=== PATIENT | male | born 1975 | race Caucasian/White ===

== ENCOUNTER 2019-12-05 22:56 | Inpatient (IN) | payer SELFPAY ==
[~2019-12-05] VITALS: Ht 162.6 cm; Wt 99.8 kg
[2019-12-05 23:05] VITALS: Ht 162.6 cm; Wt 99.8 kg
[2019-12-05 23:32] LABS: BASOPHIL % 0.3 % (0-2); PLATELET COUNT 179 x10^3mcL (130-400); RED CELL DISTRIBUTION WIDTH 14.5 % (11.5-14.5)
[2019-12-05 23:39] LABS: CALCIUM 7.5 mg/dL (8.5-10.1); CARBON DIOXIDE 23.2 mmol/L (21-32); CHLORIDE SERUM 104 mmol/L (98-107); GFR1 > 60 mL/min; GLUCOSE SERUM 142 mg/dL (74-106); POTASSIUM SERUM 4.3 mmol/L (3.5-5.1); SODIUM SERUM 136 mmol/L (136-145)
[2019-12-05 23:43] LABS: ALBUMIN 2.9 g/dL (3.4-5.0); ALKALINE PHOSPHATASE 41 U/L (46-116); ALT/SGPT 30 U/L (16-63); AST/SGOT 16 U/L (15-37); BILIRUBIN TOTAL 0.2 mg/dL (0.20-1.00); TOTAL PROTEIN, SERUM 5.7 g/dL (6.4-8.2)
--- NOTE | 2019-12-06 01:12 | NUR ---
PT AMBULATORY FROM LOBBY TO ROOM 9 WITH STEADY GAIT. 44/M C/O GENERALIZED BODY WEAKNESS X 2 DAYS. ALSO STATES "JENARO HAD BLACK STOOLS FOR 2 DAYS. N/V YESTERDAY." PT DENIES ABD PAIN, INJURY OR TRAUMA. ABD IS SOFT, ROUND AND NON RIGID. ACTIVE BOWEL SOUNDS ALL QUADRANTS. PT ON CM. BED IN LOWEST POSITION. RESP EVEN AND UNLABORED. AWAKE AND ALERT. AA/OX4. WILL CONT TO MONITOR.
--- NOTE | 2019-12-06 02:37 | NUR ---
REPORT TO SHIKHA MCDONALD TO ASSUME CARE OF PT.
[2019-12-06] MEDS ORDERED: NAPROXEN500 MG PO (03:34)
[2019-12-06] MEDS ORDERED: GABAPENTIN100 M2 PO (03:34)
[2019-12-06] MEDS ORDERED: COZAAR50 M1 PO (03:35)
--- NOTE | 2019-12-06 04:20 | NUR ---
PATIENT AMBULATED TO THE BATHROOM. URINE COLLECTED AND SENT TO THE LAB.
[2019-12-06 04:36] LABS: PHOSPHOROUS 3.4 mg/dL (2.5-4.9)
[2019-12-06 04:38] LABS: CHOLESTEROL/HDL RATIO 5.8
[2019-12-06 05:33] LABS: microscopic required? NO
[2019-12-06 05:39] LABS: urine erythrocyte NEGATIVE (NEGATIVE)
[2019-12-06 05:46] LABS: AMPHETAMINE QUAL UR NONE DETECTED (See below)
--- NOTE | 2019-12-06 06:01 | NUR ---
PATIENT IS SLEEPING. WAITING FOR TELE BED.
--- NOTE | 2019-12-06 06:29 | NUR ---
PATIENT IS SLEEPING, NO DISTRESS.
--- NOTE | 2019-12-06 07:10 | NUR ---
RECIEVED PT FROM ER. A/O X4 WITH NO [place] OR DIZZINESS. TELE# [id number] CONNECTED TO PT AND DENIES ANY CP OR PRESSURE. LUNGS CTAB WITH NO SOB NOTED. SKIN CDI. LAC/RAC BOTH CDI AND PATENT. SAFETY PRECAUTIONS IN PLACE, CALL LIGHT WITHIN REACH, WILL MONITOR.
--- NOTE | 2019-12-06 07:21 | NUR ---
ASSUMED CARE OF PT FROM SHIKHA. PT RESTING BUT ASKED TO USE URINAL. URINAL GIVEN. PT DENIES PAIN OR DISTRESS. CALL LIGHT IN REACH AT THIS TIME.
--- NOTE | 2019-12-06 07:23 | NUR ---
CALLED RX FOR 0900 MEDS. STATES WILL BRING TO ME WHEN THEY HAVE READY.
--- NOTE | 2019-12-06 08:06 | NUR ---
GAVE REPORT TO MANISHA AT [id number] FOR ROOM 256B
[2019-12-06 08:50] LABS: CALCIUM 7.2 mg/dL (8.5-10.1); CARBON DIOXIDE 24.3 mmol/L (21-32); CHLORIDE SERUM 105 mmol/L (98-107); CREATININE SERUM 0.9 mg/dL (0.7-1.3); GFR1 > 60 mL/min; GLUCOSE SERUM 134 mg/dL (74-106); PHOSPHOROUS 3.5 mg/dL (2.5-4.9); POTASSIUM SERUM 4.3 mmol/L (3.5-5.1); SODIUM SERUM 138 mmol/L (136-145)
[2019-12-06 09:03] VITALS: BP 110/60
[2019-12-06 09:16] VITALS: BP 110/60
[2019-12-06 09:23] LABS: BASOPHIL % 0.3 % (0-2); PLATELET COUNT 166 x10^3mcL (130-400)
[2019-12-06 09:33] LABS: RED CELL DISTRIBUTION WIDTH 14.9 % (11.5-14.5)
[2019-12-06 09:38] LABS: RED BLOOD CELLS 2.39 M/mm3 (4.52-5.90)
--- NOTE | 2019-12-06 09:56 | NUR ---
DR ALLEN MADE AWARE OF H/H OF 6.02/22, WILL CARRY OUT ANY NEW ORDERS.
[2019-12-06 11:20] LABS: IRON 92 ug/dL (65-170); TOTAL IRON BINDING CAPACITY 319 ug/dL (250-450)
[2019-12-06] MEDS ORDERED: BIA500 PO (12:42)
[2019-12-06] MEDS ORDERED: AMO500 PO (12:43)
[2019-12-06] MEDS ORDERED: PROT40I PO (12:45)
[2019-12-06] MEDS ORDERED: FER300 PO (12:46)
[2019-12-06 14:00] VITALS: BP 94/39
--- NOTE | 2019-12-06 14:00 | NUR ---
1400: 1 UNIT OF BLOOD PRODUCT TRANSFUSED PER MD ORDER 1415: PT STABLE WITH NO ADVERSE REACTIONS TO TRANSFUSION, VS WNL.
--- NOTE | 2019-12-06 17:45 | NUR ---
BLOOD TRANSFUSION COMPLETE, NO ADVERSE REACTIONS NOTED.
[2019-12-06 18:14] VITALS: BP 98/54
--- NOTE | 2019-12-06 18:42 | NUR ---
PT STABLE TO DISCHARGE PER MD ORDER. ALL DISCHARGE INSTRUCTIONS, EDUCATION, IMAGES, AND PRESCRIPTIONS GIVEN TO PT AND HE VERBALIZES UNDERSTANDING. IV'S REMOMED WITH CATHETERS INTACT, NO REDNESS OR INFLAMMATION NOTED TO SITES. ID BAND REMOEVED FROM PT ARM. PT ESCORTED DOWN TO LOBBY VIA WC BY ENVIRONMENTAL INSPECTOR, ALL PERSONAL BELONGINGS IN HAND.
== END 2019-12-06 19:19 | disposition home or self-care (01) | DRG 377 ==
LOC: ED 22:56 → DU 12-06 01:56
PROVIDERS: Internal Medicine Gastroenterology; ADMIT Internal Medicine; ATTEND Internal Medicine
PROC: 0DB68ZX Excision of Stomach, Via Natural or Artificial Opening Endoscopic, Diagnostic (ICD-10-PCS; principal; 2019-12-06 11:30)
PROC: 30233N1 Transfusion of Nonautologous Red Blood Cells into Peripheral Vein, Percutaneous Approach (ICD-10-PCS; 2019-12-06 11:30)
DX: K29.81 Duodenitis with bleeding (principal); N17.0 Acute kidney failure with tubular necrosis; E44.0 Moderate protein-calorie malnutrition; I10 Essential (primary) hypertension; E66.9 Obesity, unspecified; Z71.3 Dietary counseling and surveillance; Z80.59 Family history of malignant neoplasm of other urinary tract organ; Z87.891 Personal history of nicotine dependence; D64.9 Anemia, unspecified; Z68.37 Body mass index [BMI] 37.0-37.9, adult; Z20.828 Contact with and (suspected) exposure to other viral communicable diseases
CPT/HCPCS: C9113; G0378; J1200; J1610; J2250; J2310; J2405; J3010; J3490; J7040; P9016